=== PATIENT | female | born 1965 | race Caucasian/White ===

== ENCOUNTER → 2018-08-12 | Outpatient (CLI) | payer OTHER ==
--- NOTE | 2018-08-12 08:43 | REPMRS ---
Patient History The patient states she has not had a clinical breast exam in over a year. Patient is postmenopausal. Family history of unknown cancer in paternal aunt. Taking unspecified hormones for 7 years. Patient states she has had 2 cyst aspirations on left breast. [facility] 1 year ago [facility] 2D only. Digital Mammo Screening Bilat: August 12, 2018 - Exam #: [id number] Bilateral CC and MLO view(s) were taken. Technologist: Brianda Taveras, Technologist Prior study comparison: June 16, 2017, bilateral digital woman screen mammo, performed at [facility]. May 18, 2016, bilateral digital woman screen mammo, performed at [facility]. April 22, 2015, bilateral digital woman screen mammo, performed at [email or web address]. FINDINGS: The breast tissue is heterogeneously dense. This may lower the sensitivity of mammography. There is a moderate amount of heterogeneously dense fibroglandular tissue which is fairly symmetric. There is no interval development of dominant mass, architectural distortion, or clustered microcalcification typical of malignancy. There has been no change in the appearance of the mammogram from the prior studies. Assessment: BI-RADS/ACR category 1 mammogram. Negative Mammogram. Recommendation Routine screening mammogram of both breasts in 1 year (for women over age 40). This patient's Lifetime Breast Cancer RIsk is estimated at 10.6 %. This mammogram was interpreted with the aid of an FDA-approved computer-aided dectection system. Electronically Signed By: Reynold Ku MD 08/12/18 [id number]
== END ==
LOC: M RAD 07:00
PROVIDERS: ATTEND Family Medicine
DX: Z12.31 Encounter for screening mammogram for malignant neoplasm of breast (principal); Z78.0 Asymptomatic menopausal state; Z92.29 Personal history of other drug therapy; Z92.89 Personal history of other medical treatment

== ENCOUNTER → 2019-08-23 | Outpatient (CLI) | payer OTHER ==
--- NOTE | 2019-08-23 15:57 | REPMRS ---
Patient History The patient states she has not had a clinical breast exam in over a year. Family history of unknown cancer in paternal aunt. Taking unspecified hormones for 7 years. Digital Woman Screen Mammo: August 23, 2019 - Exam #: [id number] Bilateral CC and MLO view(s) were taken. Technologist: Rosa Isela Abdi, Technologist Prior study comparison: August 12, 2018, bilateral digital mammo screening bilat, performed at [facility]. June 16, 2017, bilateral digital woman screen mammo, performed at [facility]. May 18, 2016, bilateral digital woman screen mammo, performed at [facility]. FINDINGS: The breast tissue is heterogeneously dense. This may lower the sensitivity of mammography. There is a moderate amount of heterogeneously dense fibroglandular tissue which is fairly symmetric. There is no interval development of dominant mass, architectural distortion, or grouped microcalcification typical of malignancy. There has been no change in the appearance of the mammogram from the prior studies. 3-D tomosynthesis shows no additional findings. Assessment: BI-RADS/ACR category 1 mammogram. Negative Mammogram. Recommendation Routine screening mammogram of both breasts in 1 year (for women over age 40). This patient's Lifetime Breast Cancer RIsk is estimated at 10.1 %. This mammogram was interpreted with the aid of an FDA-approved computer-aided dectection system. Electronically Signed By: Reynold Ku MD 08/23/19 [id number]
== END ==
LOC: M WHC 13:57
PROVIDERS: ATTEND Family Medicine
DX: Z12.31 Encounter for screening mammogram for malignant neoplasm of breast (principal)

== ENCOUNTER → 2020-05-20 | Outpatient (CLI) | payer OTHER | LOC: M LABSMTC 15:25 | PROVIDERS: ATTEND Pediatrics | DX: Z11.59 Encounter for screening for other viral diseases (principal) ==

== ENCOUNTER → 2020-08-28 | Outpatient (CLI) | payer OTHER ==
--- NOTE | 2020-08-28 11:46 | REPMRS ---
Patient History The patient states she has not had a clinical breast exam in over a year. Family history of unknown cancer in paternal aunt. Taking unspecified hormones for 7 years. Digital Woman Screen Mammo: August 28, 2020 - Exam #: [id number] Bilateral CC and MLO view(s) were taken. Technologist: RT Noah Prior study comparison: August 23, 2019, bilateral digital woman screen mammo performed at [facility]. August 12, 2018, bilateral digital mammo screening bilat, performed at [facility]. June 16, 2017, bilateral digital woman screen mammo, performed at [facility]. FINDINGS: There are scattered fibroglandular densities. The Volpara volumetric breast density category is: B. There is a moderate amount of residual fibroglandular tissue which is fairly symmetric. There is no interval development of dominant mass, architectural distortion, or grouped microcalcification typical of malignancy. There has been no change in the appearance of the mammogram from the prior studies. 3-D tomosynthesis shows no additional findings. Assessment: BI-RADS/ACR category 1 mammogram. Negative Mammogram. Recommendation Routine screening mammogram of both breasts in 1 year (for women over age 40). [facility] Lifetime Breast Cancer RIsk is estimated at 9.9 %. This mammogram was interpreted with the aid of an FDA-approved computer-aided dectection system. Electronically Signed By: Reynold Ku MD 08/28/20 [id number]
== END ==
LOC: M WHC 09:54
PROVIDERS: ATTEND Family Medicine
DX: Z12.31 Encounter for screening mammogram for malignant neoplasm of breast (principal)